=== PATIENT | female | born 1995 | race Hispanic/Latino ===

== ENCOUNTER 2018-04-15 03:23 | Emergency (ER) | payer MEDICAID ==
[2018-04-15 03:31] VITALS: RESP 16; O2SAT 99
[2018-04-15] MEDS ORDERED: Aluminum Hydroxide/Magnesium Hydroxide Susp (30 mL) PO STA (03:58)
[2018-04-15] MEDS ORDERED: Aluminum Hydroxide/Magnesium Hydroxide Susp (30 mL) ONE (04:14)
[2018-04-15 04:17] LABS: BASO % 0.5 % (0.0-2.0); EOS # 0.3 K/uL (0.0-0.7); EOS % 3.3 % (0.0-4.0); HEMOGLOBIN 13.2 g/dL (11.0-16.0); LYMPH # 1.2 K/uL (1.0-4.3); LYMPH % 14.3 % (20.0-40.0); MEAN CELL VOLUME 84.4 fL (81.0-99.0); MEAN CORPUSCULAR HEMOGLOBIN 28.3 pg (27.0-31.0); MEAN CORPUSCULAR HGB CONC 33.5 g/dL (33.0-37.0); MEAN PLATELET VOLUME 7.7 fL (7.2-11.7); MONO # 0.6 K/uL (0.0-0.8); MONO % 6.4 % (0.0-10.0); NEUT # 6.6 K/uL (1.8-7.0); NEUT % 75.5 % (50.0-75.0); NRBC % 0.1 % (0.0-2.0); RBC 4.66 Mil/uL (3.80-5.20); RED CELL DISTRIBUTION WIDTH 13.5 % (11.5-14.5); WHITE BLOOD COUNT 8.7 K/uL (4.8-10.8)
[2018-04-15 04:33] LABS: ALB/GLOB RATIO 1.4 (1.0-2.1); ALBUMIN 4.6 g/dL (3.5-5.0); ALT/SGPT 24 U/L (9-52); AST/SGOT 35 U/L (14-36); BLOOD UREA NITROGEN 14 mg/dL (7-17); CALCIUM 9.7 mg/dl (8.6-10.4); GFR NON-AFRICAN AMERICAN > 60; LIPASE 87 U/L (23-300)
[2018-04-15 04:56] LABS: SQUAMOUS EPITHIAL 1 /hpf (0-5); URINE BILIRUBIN NEGATIVE (NEGATIVE); URINE BLOOD NEGATIVE (NEGATIVE); URINE CLARITY Clear (Clear); URINE COLOR Yellow (YELLOW); URINE GLUCOSE (UA) NORMAL (Normal); URINE LEUKOCYTE ESTERASE NEG Leu/uL (Negative); URINE PROTEIN NEGATIVE (NEGATIVE); URINE UROBILINOGEN NORMAL mg/dL (0.2-1.0)
--- NOTE | 2018-04-15 05:17 | C.PDOC ---
History Of Present Illness 22 y/o female presents to the ED complaining of epigastric pain that developed around 10pm last night. Pain is described as burning and stabbing, non- radiating. Patient states she took tums without relief. No fever. She did have one episode of vomiting, non-bloody. No diarrhea. Time Seen by Provider: 04/15/18 03:50 Chief Complaint (Nursing): Abdominal Pain History Per: Patient History/Exam Limitations: no limitations Onset/Duration Of Symptoms: Hrs Current Symptoms Are (Timing): Still Present Location Of Pain/Discomfort: Epigastric Quality Of Discomfort: "Pain" Associated Symptoms: Vomiting Past Medical History Reviewed: Historical Data, Nursing Documentation, Vital Signs Vital Signs: Last Vital Signs Temp 97.6 F 04/15/18 03:29 Pulse 77 04/15/18 03:29 Resp 16 04/15/18 03:29 BP 125/87 04/15/18 03:29 Pulse Ox 99 04/15/18 03:29 - Medical History PMH: No Chronic Diseases Surgical History: No Surg Hx Family History: States: No Known Family Hx - Social History Hx Alcohol Use: Yes Hx Substance Use: No Review Of Systems Constitutional: Negative for: Fever, Chills, Weakness Cardiovascular: Negative for: Chest Pain Respiratory: Negative for: Shortness of Breath Gastrointestinal: Positive for: Vomiting, Abdominal Pain. Negative for: Diarrhea Musculoskeletal: Negative for: Back Pain Skin: Negative for: Rash Physical Exam - Physical Exam Appears: Well, Non-toxic, No Acute Distress Skin: Normal Color, Warm, No Rash Head: Atraumatic, Normacephalic Eye(s): bilateral: Normal Inspection, PERRL, EOMI Oral Mucosa: Moist Neck: Normal ROM Chest: Symmetrical Cardiovascular: Rhythm Regular, No Murmur Respiratory: Normal Breath Sounds, No Accessory Muscle Use Gastrointestinal/Abdominal: Soft, Tenderness (epigastric), No Guarding, No Rebound Back: No CVA Tenderness, No Vertebral Tenderness Extremity: Bilateral: Atraumatic, Normal ROM Neurological/Psych: Oriented x3, Normal Cranial Nerves Gait: Steady ED Course And Treatment - Laboratory Results Result Diagrams: 04/15/18 04:12 04/15/18 04:12 Lab Results: Total Bilirubin 1.0 mg/dL (0.2-1.3) 04/15/18 04:12 AST 35 U/L (14-36) 04/15/18 04:12 ALT 24 U/L (9-52) 04/15/18 04:12 Alkaline Phosphatase 61 U/L (38-126) 04/15/18 04:12 Total Protein 7.8 g/dL (6.3-8.3) 04/15/18 04:12 Albumin 4.6 g/dL (3.5-5.0) 04/15/18 04:12 Globulin 3.2 gm/dL (2.2-3.9) 04/15/18 04:12 Albumin/Globulin Ratio 1.4 (1.0-2.1) 04/15/18 04:12 Lipase 87 U/L (23-300) 04/15/18 04:12 Urine Color Yellow (YELLOW) 04/15/18 04:51 Urine Clarity Clear (Clear) 04/15/18 04:51 Urine pH 5.0 (5.0-8.0) 04/15/18 04:51 Ur Specific Brule 1.017 (1.003-1.030) 04/15/18 04:51 Urine Protein Negative mg/dL (NEGATIVE) 04/15/18 04:51 Urine Glucose (UA) Normal mg/dL (Normal) 04/15/18 04:51 Urine Ketones Negative mg/dL (NEGATIVE) 04/15/18 04:51 Urine Blood Negative (NEGATIVE) 04/15/18 04:51 Urine Nitrate Negative (NEGATIVE) 04/15/18 04:51 Urine Bilirubin Negative (NEGATIVE) 04/15/18 04:51 Urine Urobilinogen Normal mg/dL (0.2-1.0) 04/15/18 04:51 Ur Leukocyte Esterase Neg [place]/uL (Negative) 04/15/18 04:51 Urine WBC (Auto) < 1 /hpf (0-5) 04/15/18 04:51 Urine RBC (Auto) 1 /hpf (0-3) 04/15/18 04:51 Ur Squamous Epith Cells 1 /hpf (0-5) 04/15/18 04:51 O2 Sat by Pulse Oximetry: 99 (RA) Pulse Ox Interpretation: Normal Medical Decision Making Medical Decision Making: Plan: - Labs - Maalox 30 ml PO - Pepcid 20 mg IV Disposition Counseled Patient/Family Regarding: Studies Performed, Diagnosis, Need For Followup, Rx Given - Disposition Referrals: [facility] [Outside] Disposition: HOME/ ROUTINE Disposition Time: 05:22 Condition: STABLE Prescriptions: Omeprazole Magnesium [Prilosec Otc] 20 mg PO DAILY 30 Days tablet. 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 - Scribe Statement The provider has reviewed the documentation as recorded by the Scribe Marisa Armstrong All medical record entries made by the Yueibe were at my direction and personally dictated by me. I have reviewed the chart and agree that the record accurately reflects my personal performance of the history, physical exam, medical decision making, and the department course for this patient. I have also personally directed, reviewed, and agree with the discharge instructions and dis position.
[2018-04-15 05:48] VITALS: BP 121/84; PULSE 74; TEMP 98
== END 2018-04-15 05:48 | disposition home or self-care (01) ==
LOC: C.ER 03:23
DX: K29.70 Gastritis, unspecified, without bleeding (principal)